=== PATIENT | female | born 1960 | race Caucasian/White ===

== ENCOUNTER → 2018-02-15 17:33 | Outpatient (CLI) | payer OTHER, SELFPAY ==
--- NOTE | 2018-02-15 17:37 | CT_ITS ---
STUDY: LOW DOSE CT LUNG CANCER SCREENING REASON FOR EXAM: Female, 57 years old. 23 pack-year history. RADIATION DOSAGE (If Supplied By Facility): CTDIvol = ( 2.01 ) mGy, DLP = ( 77.51 ) mGycm TECHNIQUE: No contrast was administered. Low dose technique was utilized (average mAS-38 and kVp 120). 1.25 mm axial source images with a slice interval of 1.25-mm were reconstructed in lung windows. 2.5 mm axial source images with a slice interval of 2.5-mm were reconstructed in lung windows. 5.0 mm axial source images with a slice interval of 5.0-mm were reconstructed in soft tissue windows. Nodule measured using lung windows on PACS and/or independent workstation with automated measurement of minimum and maximum diameter. Nodule measurement reported as average diameter rounded to the nearest whole number. Growth is defined as an increase ins size of greater than 1.5 mm. COMPARISON: None. NODULES: Nodule #: 1 Density: Solid Lung location: Left upper lobe: Pleural-based Location in series: Series Number: 2 Image: 65 Size - D1 x D2 mm: 3 x 2 mm: 3 mm average diameter Margin: Smooth Shape: Oval Calcification: No Fat: No Temporal comparison: None Nodule #: 2 Density: Solid Lung location: Right lower lobe: Pleural-based Location in series: Series Number: 2 Image: 150 Size - D1 x D2 mm: 1 x 1 mm: 1 mm average diameter Margin: Smooth Shape: Round Calcification: No Fat: No Temporal comparison: None Total lung nodules (excluding granulomas): 2 Emphysema: There is diffuse emphysematous changes throughout the lungs. There is marked bilateral apical pleural thickening and pleural scarring. Endobronchial lesion: No Aorta: Normal Coronary arteries: Normal Heart: Normal Pulmonary artery: Normal Mediastinal nodes: None Other chest and abdominal findings: There are degenerative changes of the thoracic spine. CT/Low Dose CT Lung Screening IMPRESSION: Lung-RADS category 2 - Continue annual screening with LDCT in 12 months. IMPORTANT NOTES FOR USE: ACR Lung-RADS Version 1.0 Assessment Categories Release Date: December 04, 2013 Category: Coded 0-4 bases on nodule(s) with highest degree of suspicion. Negative screen is defined as categories 1 and 2; a positive screen is defined as categories 3 and 4. Category 3 and 4A nodules that are unchanged on interval CT should be coded as category 2, and individuals returned to screening in 12 months. Category 4X: Category 3 or 4 nodules with additional imaging findings that increase the suspicion of lung cancer, such as spiculation, GGN that doubles in size in 1 year, enlarged lymph notes, etc. Category Modifiers: S (significant finding unrelated to lung cancer) and C (prior history of treated lung cancer) may be added to the 0-4 Lung-RADS Electronically Signed: David Lu DO at 17:03 EDT Tel [phone], Service support ,
== END ==
LOC: CT 17:33
PROVIDERS: Family Provider Family Medicine; PCP Family Medicine; Visit Provider Nurse Practitioner Family
DX: Z87.891 Personal history of nicotine dependence (principal)
CPT/HCPCS: G0297

== ENCOUNTER → 2019-01-05 | Outpatient (CLI) | payer OTHER, SELFPAY ==
[2019-01-05 08:42] VITALS: BMI 24.5
[2019-01-05 12:41] LABS: Hematocrit 40.3 % (37-47); Hemoglobin 13.2 g/dl (12.0-15.0); Mean Corp Hgb Conc 32.8 g/gl (32-36); Mean Corpuscular Hgb 31.3 pg (27.0-32.0); Mean Corpuscular Volume 95.5 fL (81-99); Mean Platelet Vol. 10.8 fl (6.2-12.0); Platelet Count 207 K/mm3 (150-450); RBC Distribution Width CV 13.2 % (11.6-14.6); RBC Distribution Width SD 45.7 fl (35.1-43.9); Red Blood Count 4.22 M/mm3 (4.2-5.4); White Blood Count 7.4 K/mm3 (4.4-11.0)
[2019-01-05 12:42] LABS: Scan Indicated on CBC? Y/N NO
[2019-01-05 12:58] LABS: Vitamin D,25 Hydroxy 42.1 ng/mL (29.95-100.01)
== END | disposition home or self-care (01) ==
LOC: BIMLAB 09:03
PROVIDERS: Family Provider Family Medicine; PCP Family Medicine; Visit Provider Family Medicine
DX: R53.83 Other fatigue (principal); R79.89 Other specified abnormal findings of blood chemistry
CPT/HCPCS: 36415; 82306; 85027

== ENCOUNTER 2019-02-13 08:53 | Day surgery (SDC) | payer OTHER, SELFPAY ==
[2019-01-17 08:47] VITALS: BMI 24.5
--- NOTE | 2019-02-12 12:03 | HP.PCM_ITS ---
History and Physical Date of Admission: 02/13/19 HISTORY OF PRESENT ILLNESS 58 year old woman presents for evaluation for TBSE. She has concerns about a lesion on her right occipital scalp near the posterior lateral neck. The lesion has increased in size over the last several months and has become more raised in configuration and has developed irregular borders. It has also changed color becoming darker. She denies trauma. She denies fever. She denies drainage or bleeding from the lesion. She denies any recent infection. She presents at this time for further evaluation and treatment. PAST MEDICAL HISTORY Skin cancer Osteoarthritis Chronic headaches Back problem Arthritis Anxiety and depression Chronic bronchitis PAST SURGICAL HISTORY appendectomy carpal tunnel repair hysterectomy nasal surgery ALLERGIES No Known Allergies MEDICATIONS cholecalciferol (vitamin D3) vitamin [id number] acid cyclobenzaprine ibuprofen albuterol sulfate HFA-actuation aerosol inhaler estradiol sertraline FAMILY HISTORY Mother - Rheumatoid arthritis, Skin cancer, Hypertension Son - defect, High cholesterol Father - Cancer Uncle - Diabetes Other - Anxiety, Depression SOCIAL HISTORY Smoking Status: Light Smoker (<10/day) alcohol intake: never substance use type: does not use REVIEW OF SYSTEMS General - Denies fever, fatigue, and weight loss. Eyes - Denies cataracts and glaucoma. ENT - Denies nasal congestion and sore throat. Has chronic sinus problems. Endocrine - Denies excessive thirst and urination. Has heat and cold intolerance. Skin - Has enlarging lesion right occipital scalp near the posterior lateral neck. Has history of basal cell carcinoma excision left upper back. Has family history of skin cancer. Musculoskeletal - Denies joint pain, joint stiffness, weakness of muscles and joints. Has back pain, and arthritis. Neuro - Denies headaches. Has lightheadedness. Cardiovascular - Denies chest pain, fatigue, and shortness of breath with exertion. Has lightheadedness. Psych - Denies anxiety. Has depression. Respiratory - Denies chronic cough. Has shortness of breath. Patient is a smoker. Gastrointestinal - Denies nausea, vomiting, diarrhea, and constipation. Hematologic - Denies abnormal bruising and bleeding. Genitourinary - Denies hematuria and urinary frequency. PHYSICAL EXAMINATION General - Alert and Oriented. HEENT - PERRL. EOMI. Throat is clear. On the right occipital scalp near the posterior lateral neck is a lesion that is raised in configuration. It has irregular borders and has changes in pigmentation. Measures 2.5 cm. No ulceration. Lesion is nontender. There is some alopecia over the lesion. No other suspicious lesions noted. Neck - Supple and nontender. No cervical adenopathy. No suspicious lesions noted. Lungs - Clear to auscultation. Heart - Regular rate and rhythm. Abdomen - Soft and nondistended. Extremities - FROM. No axillary adenopathy. Radial pulses are palpable. No suspicious lesions noted. Neuro - CN II-XII grossly intact. Psych - Normal mood and affect. ASSESSMENT 1. 2.5 cm lesion right occipital scalp near the posterior lateral neck. 2. Personal history of skin cancer. 3. Family history of skin cancer. 4. Smoker. PLAN Recommend excision of this enlarging lesion right occipital scalp near the posterior lateral neck and send it to Pathology for analysis to rule out carcinoma. If carcinoma is present or if actinic damage is present, then further excision will be done with skin flap or skin graft reconstruction based on the margin excised and the size of the resultant defect. Surgery will be done under local anesthesia and IV sedation on an outpatient b asis. Patient was informed of the risks and complications of the procedure including alternatives to surgery. These were discussed with the patient personally. Patient voices understanding and wishes to proceed. Some of the risks and complications were included in a form from the [employer]. Encouraged patient to stop smoking as it may have deleterious effects on wound healing. Patient states she does heavy lifting at work. Ideally I would want her with restrictions at work for at least a month after surgery. The restrictions involve no heavy lifting with a 20 lb limit.
--- NOTE | 2019-02-13 | LES_PTH ---
PATIENT: SUNDAY ISABEL LOC: [facility] U#:[id number] AGE/SX: 58/F ROOM: RE02/13/[address]: Dr. Fan Brito MD : 1960 BED: DIS: 02/13/2019 SPEC #: [id number] RECD: 02/13/19 10:49 STATUS: CACHORRO REQ #: [id number] EDMUNDO: 02/13/19 00:[address]: Fan Brito DEPT: SURGICAL PATHOLOGY RECD BY: Liliana Wayne ENTERED: 02/13/19 12:10 SP TYPE: Lesion OTHR DR: Dr. Ronaldo Bunch, DO Tissues: Skin of scalp, NOS Procedures: Frozen Section (charge) Surgery Specimen Level IV HEADER OPERATION: Excision lesion (capillary hemangioma) right occipital scalp PRE-OP DIAGNOSIS: 2.5 cm lesion right occipital scalp near posterior lateral neck TISSUE SUBMITTED: Lesion right occipital scalp near posterior lateral neck, suture at 12 o'clock, frozen section at 1046 FROZEN SECTION DIAGNOSIS Skin lesion, right occipital region, biopsy: Capillary hemangioma. ROSITA:willard 02/13/19 Case has been reviewed in consultation with Dr. Edge who concurs with the above diagnosis. IDC:GISSELLE MICROSCOPIC DIAGNOSIS Skin lesion, right occipital near posterior lateral neck, excisional biopsy: Benign vascular proliferation, consistent with capillary hemangioma. GISSELLE:willard 02/14/19 MICROSCOPIC DESCRIPTION Slides are reviewed. GROSS DESCRIPTION Received fresh for frozen section diagnosis labeled with the patient's name is a specimen designated lesion right occipital scalp near posterior lateral neck, suture at 12 o'clock. The specimen consists of a round piece of brown, red-flannery skin measuring 2.7 x 2.5 cm and up to 0.5 cm in thickness. The specimen is inked as follows: 12 to 3 o'clock - black, 3 to 6 o'clock - blue, 6 to 9 o'clock - green, 9 to 12 o'clock - yellow and deep - red. The specimen serially sectioned and submitted entirely for frozen section diagnosis in four cassettes. / GISSELLE:willard 02/13/19 TC:1 CPT: 56920, 90523, 91261 x3
[2019-02-13 09:14] VITALS: BP 133/84; PULSE 66; RESP 18; TEMP 36.6; O2SAT 98; BMI 23.5
[2019-02-13] MEDS: Mupirocin Ointment 22gm Tube 1 APPLIC (11:24)
--- NOTE | 2019-02-13 11:44 | PCM.OPRPT ---
Report of Operation Date of Procedure: 02/13/19 Pre-Operative Diagnosis: 1. 2.5 cm lesion right occipital scalp near the posterior lateral neck. 2. Personal history of skin cancer. 3. Family history of skin cancer. 4. Smoker. Post-Operative Diagnosis: 1. 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 2. Personal history of skin cancer. 3. Family history of skin cancer. 4. Smoker. Surgery/Procedure Performed:: Excision 2.5 cm capillary hemangioma right occipital scalp near the posterior lateral neck with rhomboid transposition skin flap reconstruction (18 cm2). Description of Surgical Findings:: 58 year old woman presents for evaluation for TBSE. She has concerns about a lesion on her right occipital scalp near the posterior lateral neck. The lesion has increased in size over the last several months and has become more raised in configuration and has developed irregular borders. It has also changed color becoming darker. She denies trauma. She denies fever. She denies drainage or bleeding from the lesion. She denies any recent infection. Patient was informed of the risks and complications of the procedure including alternatives to surgery. These were discussed with the patient personally. Patient voices understanding and wishes to proceed. She understands that sometimes alopecia may occur. She voices understanding and wishes to proceed. Some of the risks and complications were included in a form from the [employer]. Encouraged patient to stop smoking as it may have deleterious effects on wound healing. Frozen section right occipital scalp near posterolateral neck - capillary hemangioma and no carcinoma seen. 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 Drains: None. Estimated Blood Loss (mL): 10 ml. Description of Procedure: Patient was taken to OR in supine position and was placed under general anesthesia. The right occipital scalp and posterolateral neck areas were prepped and draped in the usual fashion. SCD's were placed for DVT prophylaxis. Perioperative antibiotics were given intravenously. Using xylocaine with epinephrine, the lesion right occipital scalp near posterolateral neck was infiltrated. After waiting 5 minutes for the anesthetic to take effect, the lesion was excised in a full thickness fashion down into the subcutaneous tissue with a couple mm margin in all directions thus making it a 3 cm excision. A suture was marked at the 12 oclock position for pathology orientation. The lesion was sent to Pathology as a frozen section for analysis to rule out carcinoma. Frozen section showed a capillary hemangioma and no carcinoma seen. No additional excision was necessary. Hemostasis was obtained with electrocautery. I designed a rhomboid flap adjacent to the defect. Incisions were made down into the subcutaneous tissue as the rhomboid flap was raised on a subcutaneous pedicle down to the level of muscle. Hemostasis was obtained with electrocautery. The rhomboid flap was transposed into the defect with minimal tension and minimal distortion. The wound was closed in a layered fashion with 4-0 Monocryl interrupted sutures for the deep dermis and subcutaneous tissue. The skin was approximated with 4-0 Nylon simple interrupted sutures. The size of the defect and the size of the flap needed to close the defect was 18 cm2. Antibiotic ointment was applied to the suture line followed by a gauze dressing. Patient tolerated the procedure well and was sent to PACU in satisfactory condition. Patient will be sent home on antibiotics and pain medication. Patient will followup in a week for a wound check and for discussion of the pathology report. The sutures will be removed in two weeks. Grafts/Implants Used: None. - Complications None. - Admit VTE Documentation VTE Present on Admission: No VTE Mechan Device Prophylaxis: SCD's VTE Pharm Prophylaxis ordered?: No Code Visit Surgery Charges CPT - 57407 ICD-10 - D18.01, Z85.828, Z80.8, F17.200
[2019-02-13 11:50] VITALS: BP 133/84; BP 150/82; PULSE 81; RESP 16; TEMP 36.3; O2SAT 100
--- NOTE | 2019-02-13 11:51 | DCINST_ITS ---
You will use the following diet at home:: No restrictions Discharge Activity: May not drive while taking narcotic pain medications., May Shower - in two days., - - keep head elevated. no heavy lifting. May shower in (days): 2 May resume sexual activity in: No Restrictions Weight Bearing Status: Weight bearing as tolerated Lifting Restrictions: 20 lbs. Keep extremity elevated above heart level: - - elevate head. Call your doctor if your incision/area has: Continuous Slow Oozing, Sudden Increased Bleeding, Increased Pain/ Swelling, Increased Redness, Foul Smelling Discharge, Swelling at the incision site Call your doctor if you observe: Fever of 101 or Higher, Coldness, Increased Pain, Shortness of breath, Chest pain, Calf discomfort, Uncontrolled pain Suture Line Care: - - apply antibiotic ointment to suture line daily. Cleanse incision/area with: - - may get incision wet in the shower in two days. Allergies/Adverse Reactions: Allergies No Known Allergies Allergy (Unverified 02/06/19 08:04) Medications to take at Discharge cholecalciferol (vitamin D3) 2,000 unit capsule 2,000 unit PO QDAY 02/08/18 cyclobenzaprine 5 mg tablet 5 mg PO TID PRN #20 tab 07/21/18 albuterol sulfate HFA 90 mcg/actuation aerosol inhaler 1 puff INHALATION Q6H PRN #8 g 08/18/18 estradiol 2 mg tablet 2 mg PO QDAY #90 tab 12/27/18 Cyanocobalamin (Vitamin B-12) [Vitamin B-12] 1,000 mcg PO DAILY 02/06/19 Sertraline HCl [Zoloft] 200 mg PO QHS 02/06/19 Clindamycin HCl [Cleocin] 300 mg PO TID #21 cap 02/13/19 Lactobacillus Acidophilus/Fos [Acidophilus Probiotic Tablet] 1 ea PO BID #15 tab 02/13/19 Oxycodone HCl/Acetaminophen [Percocet 5/325] 1 tab PO 4X/DAY PRN PRN 7 Days #30 tab 02/13/19 The following prescriptions were given: Lactobacillus Acidophilus/Fos [Acidophilus Probiotic Tablet] 1 ea PO BID #15 tab Prescription Printed Clindamycin HCl [Cleocin] 300 mg PO TID #21 cap Prescription Printed Oxycodone HCl/Acetaminophen [Percocet 5/325] 1 tab PO 4X/DAY PRN PRN 7 Days #30 tab PRN Reason: Pain Prescription Printed Primary Care Physician: Ronaldo Bunch DO [Primary Care Provider] - Test Results: Test results from this visit will be discussed in further detail at your follow- up appointment, if applicable. Please Follow Up With: Fan Brito MD When: one week. call [phone] for appt. Proposed Discharge Date: 02/13/19
[2019-02-13 12:00] VITALS: BP 128/79; BP 133/84; PULSE 70; RESP 16; O2SAT 94
[2019-02-13 12:15] VITALS: BP 124/78; BP 133/84; PULSE 71; RESP 16; TEMP 36.4; O2SAT 97
[2019-02-13 12:49] VITALS: BP 133/84
== END 2019-02-13 13:30 | disposition home or self-care (01) ==
LOC: SDC 08:54 → AC 08:56
PROVIDERS: Family Provider Family Medicine; PCP Family Medicine; Referring Provider Surgery; Visit Provider Surgery
PROC: (CPT 14021; principal; 2019-02-13 10:15)
DX: D18.01 Hemangioma of skin and subcutaneous tissue (principal); Z85.828 Personal history of other malignant neoplasm of skin; F41.9 Anxiety disorder, unspecified; F32.9 Major depressive disorder, single episode, unspecified; K21.9 Gastro-esophageal reflux disease without esophagitis; Z79.899 Other long term (current) drug therapy; F17.200 Nicotine dependence, unspecified, uncomplicated; M19.90 Unspecified osteoarthritis, unspecified site
CPT/HCPCS: 00300; 14021; 88305; 88331; J7120; J2405

== ENCOUNTER → 2020-06-06 09:08 | Outpatient (CLI) | payer OTHER, SELFPAY ==
[2020-06-06 08:42] VITALS: BMI 24.7
[2020-06-06 12:41] LABS: Erythrocyte Sedimentation Rate 16 mm/hr (0-30)
[2020-06-06 12:43] LABS: Absolute Lymphocyte Count 1.64 X10^3/uL (0.83-4.51); Absolute Neutrophil Count 2.9 X10^3/uL (2.0-7.7); Basophil# 0.05 X10^3/uL; Basophil% 0.9 % (0-1); Eosinophil# 0.25 X10^3/uL; Eosinophils% 4.7 % (0-5); Hematocrit 40.7 % (37-47); Hemoglobin 13.2 g/dL (12.0-15.0); Lymphocyte # 1.64 X10^3/ul (4.0); Lymphocyte % 30.9 % (19-41); Mean Corp Hgb Conc 32.4 g/dL (32-36); Mean Corpuscular Hgb 31.6 pg (27.0-32.0); Mean Corpuscular Volume 97.4 fL (81-99); Mean Platelet Vol. 10.6 fl (6.2-12.0); Monocyte# 0.46 X10^3/uL; Monocyte% 8.7 % (0-10); NRBC Flagged by Analyzer 0 % (0-5); Neutrophil # 2.89 X10^3/uL (2.7-7.7); Neutrophil % 54.6 % (47-70); Platelet Count 194 K/mm3 (150-450); RBC Distribution Width CV 13.2 % (11.6-14.6); RBC Distribution Width SD 47.5 fl (35.1-43.9); Red Blood Count 4.18 M/mm3 (4.2-5.4); White Blood Count 5.3 K/mm3 (4.4-11.0)
[2020-06-06 12:59] LABS: Anion Gap 5 (5-15); BUN 18 mg/dL (7-18); BUN/Creat Ratio 21.4 RATIO (10-20); Calcium,Total 8.6 mg/dL (8.5-10.1); Chloride 107 mmol/L (98-107); Creatinine, Serum 0.84 mg/dL (0.55-1.02); EST Glomerular Filtration Rate 74 mL/min (>60); Est Glom Filt Rate - Afr Amer 89 mL/min (>60); Glucose 82 mg/dL (74-106); Potassium 3.9 mmol/L (3.5-5.1); Sodium Level 140 mmol/L (136-145)
== END ==
PROVIDERS: PCP Family Medicine; Referring Provider Family Medicine; Visit Provider Family Medicine
DX: M19.90 Unspecified osteoarthritis, unspecified site (principal)
CPT/HCPCS: 36415; 80048; 85025; 85652

== ENCOUNTER → 2020-12-03 09:09 | Outpatient (CLI) | payer OTHER, SELFPAY ==
[2020-06-06 08:42] VITALS: BMI 24.7
[2020-12-03 12:55] LABS: Erythrocyte Sedimentation Rate 10 mm/hr (0-30)
[2020-12-03 12:58] LABS: Absolute Lymphocyte Count 1.79 X10^3/uL (0.83-4.51); Absolute Neutrophil Count 3.4 X10^3/uL (2.0-7.7); Basophil# 0.07 X10^3/uL; Basophil% 1.2 % (0-1); Eosinophil# 0.23 X10^3/uL; Eosinophils% 3.8 % (0-5); Hematocrit 42.3 % (37-47); Hemoglobin 13.2 g/dL (12.0-15.0); Lymphocyte # 1.79 X10^3/ul (0.83-4.51); Lymphocyte % 29.4 % (19-41); Mean Corp Hgb Conc 31.2 g/dL (32-36); Mean Corpuscular Hgb 30.4 pg (27.0-32.0); Mean Corpuscular Volume 97.5 fL (81-99); Mean Platelet Vol. 10.7 fl (6.2-12.0); Monocyte# 0.57 X10^3/uL; Monocyte% 9.4 % (0-10); NRBC Flagged by Analyzer 0 % (0-5); Neutrophil % 55.9 % (47-70); Platelet Count 208 K/mm3 (150-450); RBC Distribution Width CV 13.4 % (11.6-14.6); RBC Distribution Width SD 48.7 fl (35.1-43.9); Red Blood Count 4.34 M/mm3 (4.2-5.4); White Blood Count 6.1 K/mm3 (4.4-11.0)
[2020-12-03 13:02] LABS: AST(SGOT) 15 U/L (15-37); Alanine Aminotransfer ALT/SGPT 16 U/L (13-56); Albumin, Serum 3.8 g/dL (3.2-5.0); Alkaline Phosphatase 77 U/L (45-117); Anion Gap 4 (5-15); BUN 16 mg/dL (7-18); BUN/Creat Ratio 17.4 RATIO (10-20); Calcium,Total 8.8 mg/dL (8.5-10.1); Chloride 106 mmol/L (98-107); Creatinine, Serum 0.92 mg/dL (0.55-1.02); EST Glomerular Filtration Rate 66 mL/min (>60); Est Glom Filt Rate - Afr Amer 80 mL/min (>60); Globulin 3.7 g/dL (2.2-4.2); Glucose 89 mg/dL (74-106); Potassium 4.3 mmol/L (3.5-5.1); Protein, Total 7.5 g/dL (6.4-8.2); Sodium Level 140 mmol/L (136-145)
== END ==
PROVIDERS: PCP Family Medicine; Referring Provider Family Medicine; Visit Provider Family Medicine
DX: M19.90 Unspecified osteoarthritis, unspecified site (principal)
CPT/HCPCS: 36415; 80053; 85025; 85652

== ENCOUNTER → 2020-12-11 15:09 | Outpatient (CLI) | payer OTHER, SELFPAY ==
[2020-12-03 09:52] VITALS: BMI 23.5
[2020-12-11 14:06] VITALS: BMI 23.5
--- NOTE | 2020-12-11 15:17 | CT_ITS ---
STUDY: CT CHEST WITHOUT CONTRAST- LOW DOSE SCREENING PROTOCOL REASON FOR EXAM: Female, 60 years old. Current smoker. 20 pack per year history. No current symptoms of lung cancer or pulmonary infection. Shared decision-making with referring PCP documented in patient''s record. RADIATION DOSAGE (If Supplied By Facility): CTDIvol = ( 2.01 ) mGy, DLP = ( 77.01 ) mGycm TECHNIQUE: Low dose screening CT examination performed from the base of the neck to the upper abdomen. Sagittal and coronal reformatted images performed. Sagittal and coronal MIP images provided. The measurements provided are average, rounded measurements per ACR guidelines. COMPARISON: 02/15/2018 FINDINGS: Mild bilateral apical scarring. Mild emphysematous changes. There is no demonstrated pleural abnormality. Normal heart and pericardium. There are calcifications of the coronary arteries. Normal mediastinum. Normal hilar regions. Normal unenhanced pulmonary arteries. Normal aorta arch and descending thoracic aorta. Levoscoliosis lumbar spine with degenerative disc disease. There is no demonstrated abnormality of the visualized upper abdomen. CT/Low Dose CT Lung Screening IMPRESSION: 1. No significant indeterminate incidental findings requiring additional imaging. 2. Incidental findings include mild emphysema with bilateral apical scarring.. ASSESSMENT CATEGORY: LungRADS 1 - Negative. Continue annual screening with LDCT in 12 months, per established ACR guidelines. Electronically Signed: Rah Kapoor MD at 18:10 EDT Tel , Service support ,
--- NOTE | 2020-12-11 15:25 | RAD_ITS ---
STUDY: X-RAY - CERVICAL SPINE REASON FOR EXAM: Female, 60 years old. neck pain TECHNIQUE: 3 view(s) of the cervical spine were obtained. COMPARISON: None FINDINGS: Normal anterior atlantoaxial articulation. Normal odontoid process. There is straightening of the normal cervical lordosis. 2 mm of anterolisthesis of C4 on C5. There is multi-level endplate spondylosis. There is multi-level degenerative disc disease with multilevel disc space narrowing. Normal visualized intervertebral neuroforamina. The soft tissue structures are unremarkable. RAD/Cerv Spine 2 or 3 Views IMPRESSION: Moderate degenerative disc disease with straightening of the normal lordotic curvature in 2 mm of anterolisthesis of C4 on C5. Electronically Signed: Rah Kapoor MD at 16:01 EDT Tel , Service support ,
== END ==
PROVIDERS: PCP Family Medicine; Referring Provider Internal Medicine Critical Care Medicine; Visit Provider Internal Medicine Critical Care Medicine
DX: F17.200 Nicotine dependence, unspecified, uncomplicated (principal); M54.2 Cervicalgia
CPT/HCPCS: 71271; 72040

== ENCOUNTER 2020-12-18 10:26 | Day surgery (SDC) | payer OTHER, SELFPAY ==
--- NOTE | 2011-12-19 07:00 | HP_ITS ---
Intake Vital Signs 12/11/20 14:05 12/11/20 14:06 Height 5 ft 6 in Weight: 136 lb BMI 21.9 23.5 BP 136/82 H Blood Pressure Location Rt brachial Position Sitting Respiration 18 Pulse Oximetry (%) 98 Oxygen Delivery Method room air Intake Visit Reasons: Abnormal Weight Loss Chief Complaint: abn weight loss Skin Carver Required: No Is patient in pain?: No Allergies No Known Allergies Allergy (Verified 12/11/20 14:05) Medications cholecalciferol (vitamin D3) 50 mcg (2,000 unit) capsule 2,000 unit PO QDAY 02/08/18 [History Confirmed 12/11/20] albuterol sulfate 90 mcg/actuation aerosol inhaler 1 puff INHALATION Q6H PRN #8 g 08/18/18 [Rx Confirmed 12/11/20] cyanocobalamin (vitamin B-12) 1,000 mcg PO DAILY 02/06/19 [History Confirmed 12/11/20] cyclobenzaprine 5 mg tablet 5 mg PO TID PRN #20 tab 06/28/19 [Rx Confirmed 12/11/20] ibuprofen 600 mg tablet 600 mg PO TID PRN #90 tab 04/25/20 [Rx Confirmed 12/11/20] indomethacin 50 mg capsule 50 mg PO TID #90 cap 06/06/20 [Rx Confirmed 12/11/20] sertraline 100 mg tablet 200 mg PO QHS #180 tab 07/26/20 [Rx Confirmed 12/11/20] estradiol 2 mg tablet 2 mg PO QDAY #90 tab 08/27/20 [Rx Confirmed 12/11/20] PFSH Medical History Anxiety and depression Arthritis Back problem Chronic bronchitis Chronic headaches Osteoarthritis Seasonal allergies Skin cancer Vision problems Surgical History History of appendectomy History of carpal tunnel repair History of hysterectomy History of nasal surgery History of surgical removal of skin lesion Family History Mother Rheumatoid arthritis Skin cancer Hypertension Son defect High cholesterol Father Cancer Uncle Diabetes Other Anxiety Depression Social History Smoking Status: Current every day smoker alcohol intake: never substance use type: does not use what type of physical activity do you participate in: none additional social history: DOES NOT USE ASPIRIN DOES USE IBUPROFEN HPI HPI HPI: SUNDAY LITTLE, is a 60 F who presents to the office today for HPI HPI Surgical H&P: Yes HPI: SUNDAY LITTLE, is a 60 F who presents to the office today for unexplained weight loss. The patient reports that over the last 3 to 4 months she has lost 25 pounds unintentionally. The patient has not had any nausea or vomiting or abdominal pain. The patient has not noted any blood in her stool. She has never had a colonoscopy. She has not had any type of weight loss intentions. ROS General General: Yes weight change; No appetite, fatigue, colon cancer, breast cancer or weakness HEENT HEENT: Yes difficulty swallowing; No eye injury, eye surgery, swollen glands or hoarseness Endo Endocrine: No thyroid disease, diabetes mellitus, thyroid cancer, Hair loss, heat intolerance or cold intolerance Skin Skin: No rash or changing moles Breast Breast: No left breast lump, right breast lump, nipple discharge, breast pain, abnormal mammogram, abnormal US or breast enlargement Musc Musculoskeletal: Yes back problems and arthritis; No rheumatoid arthritis, gout or joint pain Cardio Cardiovascular: No murmur, pacemaker, heart disease, atrial fibrillation, high blood pressure, heart attack, heart stent, palpitations, shortness of breat with exertion or chest pain Psych Psychiatric: Yes depression; No anxiety or hearing voices Resp Respiratory: Yes shortness of breath, No sleep apnea, No cough, No COPD, No asthma, No emphysema and No wheezing Gastro Gastrointestinal: No abdominal pain, Yes nausea or vomiting, No diarrhea, No constipation, No blood in stool, Yes acid reflux, Yes hemorrhoids, No ulcers, No gallbladder problem and No black,tarry stools Juanito Hematologic: No blood thinners, No blood disorders, No bleeding, No anemia and No blood clots Neuro Neurologic: No system reviewed and no additional complaints, except as documented, No as per HPI, No abnormal gait, No abnormal hearing, No abnormal movements, No abnormal speech, No behavioral changes, No burning sensations, No confusion, No convulsions, No disequilibrium, No dizziness, No localized weakness, No frequent falls, No headache(s), No lack of coordination, No loss of vision, No memory loss, No numbness, No other visual disturbances, No radicular pain, No restless legs, No sensory deficit, No syncope, No tingling, No tremor(s), No weakness and No other Exam Const General: cooperative Orientation: alert and oriented x3 HENMT Head: normal to inspection Neck Neck: normal visual inspection and full ROM Chest Chest palpation & inspection: normal inspection of the chest Breast Palpation: No nipple discharge Resp Effort & Inspection: normal respiratory effort Auscultation: clear to auscultation bilaterally Cardio Rate: regular rate Rhythm: regular rhythm Heart Sounds: no murmurs GI Inspection: non-distended Palpation: soft and nontender Skin General: no rashes or lesions noted Neuro General: patient alert and patient oriented x3 Extrem General: full ROM Psych Appearance: grossly normal Mental Status: mental status grossly normal Assessment and Plan Assessment and Plan (1) Unexplained weight loss: Status: Acute Plan - Dr. Jason Nelson MD: The patient has been experiencing unintentional weight loss over the last 3 to 4 months. She has never had a colonoscopy in the past. She denies any blood in her stool or abdominal pain. She has no history of malignancy other than skin cancer. She is getting a CT of her chest today due to her smoking history. The patient was sent in for EGD and colonoscopy to rule out malignancy. I explained endoscopy in detail to the patient. I explained the risks including but not limited to stroke or heart attack with anesthesia, perforation of the GI tract, bleeding, infection. I explained that any of these could necessitate further emergency surgery. The patient understands and all questions were answered sufficiently. The patient wishes to proceed with procedure. Jason Nelson MD Pager: [facility] [address] [place] [address], [address] [place] [address] Office: Coding Level of Care Code Off vis,new,level 3 Diagnoses Unexplained weight loss R63.4
[2020-12-11 14:06] VITALS: BMI 23.5
[2020-12-18] VITALS (9 sets, daily range): BP systolic 93–118; BP diastolic 48–99; PULSE 55–67; RESP 14–16; TEMP 36.5–37.1; O2SAT 98–100; BMI 20.9
--- NOTE | 2020-12-18 11:05 | HP.PCM_ITS ---
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 Required: No Is patient in pain?: No Allergies No Known Allergies Allergy (Verified 12/11/20 14:05) Medications cholecalciferol (vitamin D3) 50 mcg (2,000 unit) capsule 2,000 unit PO QDAY 02/08/18 [History Confirmed 12/11/20] albuterol sulfate 90 mcg/actuation aerosol inhaler 1 puff INHALATION Q6H PRN #8 g 08/18/18 [Rx Confirmed 12/11/20] cyanocobalamin (vitamin B-12) 1,000 mcg PO DAILY 02/06/19 [History Confirmed 12/11/20] cyclobenzaprine 5 mg tablet 5 mg PO TID PRN #20 tab 06/28/19 [Rx Confirmed 12/11/20] ibuprofen 600 mg tablet 600 mg PO TID PRN #90 tab 04/25/20 [Rx Confirmed 12/11/20] indomethacin 50 mg capsule 50 mg PO TID #90 cap 06/06/20 [Rx Confirmed 12/11/20] sertraline 100 mg tablet 200 mg PO QHS #180 tab 07/26/20 [Rx Confirmed 12/11/20] estradiol 2 mg tablet 2 mg PO QDAY #90 tab 08/27/20 [Rx Confirmed 12/11/20] PFSH Medical History Anxiety and depression Arthritis Back problem Chronic bronchitis Chronic headaches Osteoarthritis Seasonal allergies Skin cancer Vision problems Surgical History History of appendectomy History of carpal tunnel repair History of hysterectomy History of nasal surgery History of surgical removal of skin lesion Family History Mother Rheumatoid arthritis Skin cancer Hypertension Son defect High cholesterol Father Cancer Uncle Diabetes Other Anxiety Depression Social History Smoking Status: Current every day smoker alcohol intake: never substance use type: does not use what type of physical activity do you participate in: none additional social history: DOES NOT USE ASPIRIN DOES USE IBUPROFEN HPI HPI HPI: SUNDAY LITTLE, is a 60 F who presents to the office today for HPI HPI Surgical H&P: Yes HPI: SUNDAY LITTLE, is a 60 F who presents to the office today for unex plained weight loss. The patient reports that over the last 3 to 4 months she has lost 25 pounds unintentionally. The patient has not had any nausea or vomiting or abdominal pain. The patient has not noted any blood in her stool. She has never had a colonoscopy. She has not had any type of weight loss intentions. ROS General General: Yes weight change; No appetite, fatigue, colon cancer, breast cancer or weakness HEENT HEENT: Yes difficulty swallowing; No eye injury, eye surgery, swollen glands or hoarseness Endo Endocrine: No thyroid disease, diabetes mellitus, thyroid cancer, Hair loss, heat intolerance or cold intolerance Skin Skin: No rash or changing moles Breast Breast: No left breast lump, right breast lump, nipple discharge, breast pain, abnormal mammogram, abnormal US or breast enlargement Musc Musculoskeletal: Yes back problems and arthritis; No rheumatoid arthritis, gout or joint pain Cardio Cardiovascular: No murmur, pacemaker, heart disease, atrial fibrillation, high blood pressure, heart attack, heart stent, palpitations, shortness of breat with exertion or chest pain Psych Psychiatric: Yes depression; No anxiety or hearing voices Resp Respiratory: Yes shortness of breath, No sleep apnea, No cough, No COPD, No asthma, No emphysema and No wheezing Gastro Gastrointestinal: No abdominal pain, Yes nausea or vomiting, No diarrhea, No constipation, No blood in stool, Yes acid reflux, Yes hemorrhoids, No ulcers, No gallbladder problem and No black,tarry stools Juanito Hematologic: No blood thinners, No blood disorders, No bleeding, No anemia and No blood clots Neuro Neurologic: No system reviewed and no additional complaints, except as documented, No as per HPI, No abnormal gait, No abnormal hearing, No abnormal movements, No abnormal speech, No behavioral changes, No burning sensations, No confusion, No convulsions, No disequilibrium, No dizziness, No localized weakness, No frequent falls, No headache(s), No lack of coordination, No loss of vision, No memory loss, No numbness, No other visual disturbances, No radicular pain, No restless legs, No sensory deficit, No syncope, No tingling, No tremor(s), No weakness and No other Exam Const General: cooperative Orientation: alert and oriented x3 HENMT Head: normal to inspection Neck Neck: normal visual inspection and full ROM Chest Chest palpation & inspection: normal inspection of the chest Breast Palpation: No nipple discharge Resp Effort & Inspection: normal respiratory effort Auscultation: clear to auscultation bilaterally Cardio Rate: regular rate Rhythm: regular rhythm Heart Sounds: no murmurs GI Inspection: non-distended Palpation: soft and nontender Skin General: no rashes or lesions noted Neuro General: patient alert and patient oriented x3 Extrem General: full ROM Psych Appearance: grossly normal Mental Status: mental status grossly normal Assessment and Plan Assessment and Plan (1) Unexplained weight loss: Status: Acute Plan - Dr. Jason Nelson MD: The patient has been experiencing unintentional weight loss over the last 3 to 4 months. She has never had a colonoscopy in the past. She denies any blood in her stool or abdominal pain. She has no history of malignancy other than skin cancer. She is getting a CT of her chest today due to her smoking history. The patient was sent in for EGD and colonoscopy to rule out malignancy. I explained endoscopy in detail to the patient. I explained the risks including but not limited to stroke or heart attack with anesthesia, perforation of the GI tract, bleeding, infection. I explained that any of these could necessitate further emergency surgery. The patient understands and all questions were answered sufficiently. The patient wishes to proceed with procedure. Jason Nelson MD Pager: [facility] [address] [place] [address], [address] [place] [address] Office: I have re-examined the patient. There are no clinical changes since date of exam.
[2020-12-18] MEDS: Lactated Ringers 1,000 ML 100 ML IV (11:09)
--- NOTE | 2020-12-18 12:18 | OP.CCLET_ITS ---
12/18/2020 Ronaldo Bunch Re : Upper GI endoscopy procedure for Jesi Granger Dear Dr. Bunch This procedure was performed on Friday, December 18, 2020. My impressions and recommendations are as follows: Impressions : - Normal esophagus. - Normal stomach. - Normal examined duodenum. - No specimens collected. Recommendations : - Discharge patient to home. - Resume previous diet. - Continue present medications. - Perform CT scan (computed tomography) of the abdomen with contrast at appointment to be scheduled. My findings are described in the full procedure note, which is enclosed. If I can be of further assistance, please feel free to contact me at Doctor phone number(s): , Work: . Sincerely, Jason Nelson MD 12/18/2020 12:17:57 PM This report has been signed electronically.
--- NOTE | 2020-12-18 12:18 | OP.EGD_ITS ---
Patient Name: Jesi Granger Procedure Date: 12/18/2020 11:42 AM Date of : 1960 Age: 60 Procedure: Upper GI endoscopy Indications: Weight loss Providers: Jason Nelson MD Medicines: Monitored Anesthesia Care Patient Profile: This is a 60 year old female. Refer to note in patient chart for documentation of history and physical. Complications: No immediate complications. Procedure: Pre-Anesthesia Assessment: - Prior to the procedure, a History and Physical was performed, and patient medications and allergies were reviewed. The patient's tolerance of previous anesthesia was also reviewed. The risks and benefits of the procedure and the sedation options and risks were discussed with the patient. All questions were answered, and informed consent was obtained. Prior Anticoagulants: The patient has taken no previous anticoagulant or antiplatelet agents. After reviewing the risks and benefits, the patient was deemed in satisfactory condition to undergo the procedure. After obtaining informed consent, the endoscope was passed under direct vision. Throughout the procedure, the patient's blood pressure, pulse, and oxygen saturations were monitored continuously. The gastroscope was introduced through the mouth, and advanced to the second part of duodenum. The upper GI endoscopy was accomplished without difficulty. The patient tolerated the procedure well. Scope In: 11:54:04 AM Scope Out: 11:56:17 AM Total Procedure Duration Time 0 hours 2 minutes 13 seconds Findings: The esophagus was normal. The stomach was normal. The examined duodenum was normal. Impression: - Normal esophagus. - Normal stomach. - Normal examined duodenum. - No specimens collected. Recommendation: - Discharge patient to home. - Resume previous diet. - Continue present medications. - Perform CT scan (computed tomography) of the abdomen with contrast at appointment to be scheduled. Procedure Code(s): --- Professional --- 41052, Esophagogastroduodenoscopy, flexible, transoral; diagnostic, including collection of specimen(s) by brushing or washing, when performed (separate procedure) Diagnosis Code(s): --- Professional --- R63.4, Abnormal weight loss CPT copyright 2017 [employer]. All rights reserved. The codes documented in this report are preliminary and upon fire tower keeper review may be revised to meet current compliance requirements. Jason Nelson MD 12/18/2020 12:17:57 PM This report has been signed electronically. Number of Addenda: 0 Note Initiated On: 12/18/2020 11:42 AM
--- NOTE | 2020-12-18 12:19 | OP.CCLET_ITS ---
12/18/2020 Ronaldo Bunch Re : Colonoscopy procedure for Jesi Granger Dear Dr. Bunch This procedure was performed on Friday, December 18, 2020. My impressions and recommendations are as follows: Impressions : - The entire examined colon is normal on direct and retroflexion views. - No specimens collected. Recommendations : - Discharge patient to home. - Resume previous diet. - Continue present medications. - Repeat colonoscopy in 10 years for screening purposes. My findings are described in the full procedure note, which is enclosed. If I can be of further assistance, please feel free to contact me at Doctor phone number(s): , Work: . Sincerely, Jason Nelson MD 12/18/2020 12:19:02 PM This report has been signed electronically.
--- NOTE | 2020-12-18 12:19 | OP.COLON_ITS ---
Patient Name: Jesi Granger Procedure Date: 12/18/2020 11:56 AM Date of : 1960 Age: 60 Procedure: Colonoscopy Indications: Weight loss Providers: Jason Nelson MD Medicines: Monitored Anesthesia Care Patient Profile: This is a 60 year old female. Refer to note in patient chart for documentation of history and physical. Last Colonoscopy: none. The patient's first colonoscopy is today. Complications: No immediate complications. Procedure: Pre-Anesthesia Assessment: - Prior to the procedure, a History and Physical was performed, and patient medications and allergies were reviewed. The patient's tolerance of previous anesthesia was also reviewed. The risks and benefits of the procedure and the sedation options and risks were discussed with the patient. All questions were answered, and informed consent was obtained. Prior Anticoagulants: The patient has taken no previous anticoagulant or antiplatelet agents. After reviewing the risks and benefits, the patient was deemed in satisfactory condition to undergo the procedure. After I obtained informed consent, the scope was passed under direct vision. Throughout the procedure, the patient's blood pressure, pulse, and oxygen saturations were monitored continuously. The colonoscope was introduced through the anus and advanced to the cecum, identified by appendiceal orifice and ileocecal valve. The colonoscopy was performed without difficulty. The patient tolerated the procedure well. The quality of the bowel preparation was good. Scope In: 11:58:54 AM Scope Withdrawal Time 0 hours 6 minutes 42 seconds Scope Out: 12:14:22 PM Total Procedure Duration Time 0 hours 15 minutes 28 seconds Findings: The entire examined colon appeared normal on direct and retroflexion views. Impression: - The entire examined colon is normal on direct and retroflexion views. - No specimens collected. Recommendation: - Discharge patient to home. - Resume previous diet. - Continue present medications. - Repeat colonoscopy in 10 years for screening purposes. Procedure Code(s): --- Professional --- 82435, Colonoscopy, flexible; diagnostic, including collection of specimen(s) by brushing or washing, when performed (separate procedure) Diagnosis Code(s): --- Professional --- R63.4, Abnormal weight loss CPT copyright 2017 [employer]. All rights reserved. The codes documented in this report are preliminary and upon farmworker dairy review may be revised to meet current compliance requirements. Jason Nelson MD 12/18/2020 12:19:02 PM This report has been signed electronically. Number of Addenda: 0 Note Initiated On: 12/18/2020 11:56 AM
== END 2020-12-18 13:10 ==
LOC: EN 10:29 → AC 10:56
PROVIDERS: PCP Family Medicine; Referring Provider Family Medicine; Visit Provider Surgery
PROC: 0DJD8ZZ Inspection of Lower Intestinal Tract, Via Natural or Artificial Opening Endoscopic (ICD-10-PCS; CPT 45378; principal; 2020-12-18 11:55)
DX: R63.4 Abnormal weight loss (principal); Z68.20 Body mass index [BMI] 20.0-20.9, adult; F41.9 Anxiety disorder, unspecified; F32.9 Major depressive disorder, single episode, unspecified; M19.90 Unspecified osteoarthritis, unspecified site; Z85.828 Personal history of other malignant neoplasm of skin; Z79.899 Other long term (current) drug therapy; F17.210 Nicotine dependence, cigarettes, uncomplicated
CPT/HCPCS: 43235; 45378; 87426; C9803; J7120; J2405

== ENCOUNTER → 2021-03-20 09:05 | Outpatient (CLI) | payer OTHER, SELFPAY ==
[2021-02-12 09:03] VITALS: BMI 20.9
[2021-03-20 12:14] LABS: Erythrocyte Sedimentation Rate 17 mm/hr (0-30)
[2021-03-20 12:22] LABS: CRP < 2.90 mg/L (0.0-3.0); Rheumatoid Factor < 10.0 IU/mL (<15)
[2021-03-21 17:29] LABS: ANTINUCLEAR ANTIBODIES DIRECT Negative (Negative)
== END ==
PROVIDERS: PCP Family Medicine; Referring Provider Family Medicine; Visit Provider Family Medicine
DX: M25.40 Effusion, unspecified joint (principal)
CPT/HCPCS: 36415; 85652; 86038; 86140; 86431

== ENCOUNTER → 2022-03-17 | Outpatient (CLI) | payer OTHER, SELFPAY ==
--- NOTE | 2022-03-17 14:38 | CT_ITS ---
STUDY: LOW DOSE CT LUNG CANCER SCREENING REASON FOR EXAM: Female, 62 years old. Lung cancer screening -- and gt;20 pk yr hx;current smoker;asymptomatic RADIATION DOSAGE (If Supplied By Facility): CTDIvol = ( 2.01 ) mGy, DLP = ( 71.98 ) mGycm TECHNIQUE: No contrast was administered. Low dose technique was utilized (average mAS-38 and kVp 120). 1.25 mm axial source images with a slice interval of 1.25-mm were reconstructed in lung windows. 2.5 mm axial source images with a slice interval of 2.5-mm were reconstructed in lung windows. 5.0 mm axial source images with a slice interval of 5.0-mm were reconstructed in soft tissue windows. COMPARISON: Comparison is made with prior study dated 12/11/2020. NODULES: No suspicious nodules are seen. Emphysema: Stable fibrotic scarring in the lung apices. Hyperinflation. Emphysematous changes with centrilobular changes worse in the upper lobes. Endobronchial lesion: None Aorta: Atherosclerotic calcific plaques of the aortic arch. CORONARY ARTERIES: Coronary artery calcification is not seen. Heart: Unremarkable Pulmonary artery: Unremarkable Mediastinal nodes: Unremarkable Other chest and abdominal findings: CT/Low Dose CT Lung Screening IMPRESSION: Lung-RADS category 2 - Continue annual screening with LDCT in 12 months. IMPORTANT NOTES FOR USE: ACR Lung-RADS Version 1.1 Assessment Categories Release Date: 2018 Category: Coded 0-4 bases on nodule(s) with highest degree of suspicion. Negative screen is defined as categories 1 and 2; a positive screen is defined as categories 3 and 4. Category 3 and 4A nodules that are unchanged on interval CT should be coded as category 2, and individuals returned to screening in 12 months. Category 4X: Category 3 or 4 nodules with additional imaging findings that increase the suspicion of lung cancer, such as spiculation, GGN that doubles in size in 1 year, enlarged lymph notes, etc. Category Modifiers: S (significant finding unrelated to lung cancer) Electronically Signed: Tomer Reyes MD at 15:05 EDT ,
== END | disposition home or self-care (01) ==
LOC: CT 14:37
PROVIDERS: PCP Family Medicine; Referring Provider Nurse Practitioner Family; Visit Provider Nurse Practitioner Family
DX: Z12.2 Encounter for screening for malignant neoplasm of respiratory organs (principal); Z87.891 Personal history of nicotine dependence
CPT/HCPCS: 71271

== ENCOUNTER → 2022-07-29 | Outpatient (CLI) | payer OTHER, SELFPAY ==
[2022-07-29 11:07] LABS: Absolute Lymphocyte Count 1.51 X10^3/uL (0.83-4.51); Absolute Neutrophil Count 3.7 X10^3/uL (2.0-7.7); Basophil# 0.08 X10^3/uL; Basophil% 1.3 % (0-1); Eosinophils% 3.3 % (0-5); Hematocrit 39.6 % (37-47); Hemoglobin 12.5 g/dL (12.0-15.0); Lymphocyte # 1.51 X10^3/ul (0.83-4.51); Lymphocyte % 24.8 % (19-41); Mean Corp Hgb Conc 31.6 g/dL (32-36); Mean Corpuscular Hgb 30.8 pg (27.0-32.0); Mean Corpuscular Volume 97.5 fL (81-99); Mean Platelet Vol. 10.7 fl (6.2-12.0); Monocyte# 0.52 X10^3/uL; Monocyte% 8.6 % (0-10); NRBC Flagged by Analyzer 0 % (0-5); Neutrophil # 3.74 X10^3/uL (2.7-7.7); Neutrophil % 61.5 % (47-70); Platelet Count 208 K/mm3 (150-450); RBC Distribution Width CV 13.6 % (11.6-14.6); RBC Distribution Width SD 48.9 fl (35.1-43.9); Red Blood Count 4.06 M/mm3 (4.2-5.4); White Blood Count 6.1 K/mm3 (4.4-11.0)
[2022-07-29 11:17] LABS: Vitamin D,25 Hydroxy 26.2 ng/mL
[2022-07-29 11:47] LABS: Erythrocyte Sedimentation Rate 18 mm/hr (0-30)
== END | disposition home or self-care (01) ==
LOC: BIMLAB 08:52
PROVIDERS: PCP Family Medicine; Referring Provider Family Medicine; Visit Provider Family Medicine
DX: M79.7 Fibromyalgia (principal); M19.90 Unspecified osteoarthritis, unspecified site
CPT/HCPCS: 36415; 82306; 85025; 85652

== ENCOUNTER → 2023-08-31 | Outpatient (CLI) | payer OTHER, SELFPAY ==
[2023-08-31 12:10] LABS: Hematocrit 38.9 % (37-47); Hemoglobin 12.4 g/dL (12.0-15.0); Mean Corp Hgb Conc 31.9 g/dL (32-36); Mean Corpuscular Hgb 30.8 pg (27.0-32.0); Mean Corpuscular Volume 96.8 fL (81-99); Mean Platelet Vol. 10.6 fl (6.2-12.0); Platelet Count 217 K/mm3 (150-450); RBC Distribution Width CV 13.4 % (11.6-14.6); RBC Distribution Width SD 47.8 fl (35.1-43.9); Red Blood Count 4.02 M/mm3 (4.2-5.4); White Blood Count 9.4 K/mm3 (4.4-11.0)
[2023-08-31 12:23] LABS: ALB/GLOB Ratio 0.9 RATIO (0.9-2.4); AST(SGOT) 18 U/L (15-37); Alanine Aminotransfer ALT/SGPT 18 U/L (13-56); Albumin, Serum 3.6 g/dL (3.2-5.0); Alkaline Phosphatase 79 U/L (45-117); Anion Gap 3 (5-15); BUN 18 mg/dL (7-18); BUN/Creat Ratio 19.7 RATIO (10-20); Chloride 109 mmol/L (98-107); Creatinine, Serum 0.92 mg/dL (0.55-1.02); EST Glomerular Filtration Rate 66 mL/min (>60); Est Glom Filt Rate - Afr Amer 80 mL/min (>60); Globulin 3.8 g/dL (2.2-4.2); Glucose 83 mg/dL (74-106); Potassium 3.9 mmol/L (3.5-5.1); Protein, Total 7.4 g/dL (6.4-8.2); Sodium Level 140 mmol/L (136-145)
== END | disposition home or self-care (01) ==
LOC: BIMLAB 10:48
PROVIDERS: PCP Family Medicine; Visit Provider Family Medicine
DX: K21.9 Gastro-esophageal reflux disease without esophagitis (principal); M19.90 Unspecified osteoarthritis, unspecified site; M79.7 Fibromyalgia
CPT/HCPCS: 36415; 80053; 85027

== ENCOUNTER → 2023-10-05 | Outpatient (CLI) | payer OTHER, SELFPAY ==
--- NOTE | 2023-10-05 14:55 | CT_ITS ---
STUDY: LOW DOSE CT LUNG CANCER SCREENING REASON FOR EXAM: Female, 63 years old. Lung cancer screening 20 pk yr hx; asymptmatic; current smoker RADIATION DOSAGE (If Supplied By Facility): CTDIvol = ( 1.59 ) mGy, DLP = ( 61.16 ) mGycm TECHNIQUE: No contrast was administered. Low dose technique was utilized (average mAS-38 and kVp 120). 1.25 mm axial source images with a slice interval of 1.25-mm were reconstructed in lung windows. 2.5 mm axial source images with a slice interval of 2.5-mm were reconstructed in lung windows. 5.0 mm axial source images with a slice interval of 5.0-mm were reconstructed in soft tissue windows. COMPARISON: Comparison is made with prior study March 17, 2022. NODULES: No suspicious pulmonary nodules are seen. Emphysema: Stable fibrotic scarring in the lung apices. Stable emphysematous changes. Endobronchial lesion: None Aorta: Atherosclerotic plaque formation of the aortic arch. CORONARY ARTERIES: Coronary artery calcification is not seen. Heart: Unremarkable Pulmonary artery: Unremarkable Mediastinal nodes: Unremarkable Other chest and abdominal findings: CT/Low Dose CT Lung Screening IMPRESSION: Lung-RADS category 2 - Continue annual screening with LDCT in 12 months. IMPORTANT NOTES FOR USE: ACR Lung-RADS Version 1.1 Assessment Categories Release Date: 2018 Category: Coded 0-4 bases on nodule(s) with highest degree of suspicion. Negative screen is defined as categories 1 and 2; a positive screen is defined as categories 3 and 4. Category 3 and 4A nodules that are unchanged on interval CT should be coded as category 2, and individuals returned to screening in 12 months. Category 4X: Category 3 or 4 nodules with additional imaging findings that increase the suspicion of lung cancer, such as spiculation, GGN that doubles in size in 1 year, enlarged lymph notes, etc. Category Modifiers: S (significant finding unrelated to lung cancer) Electronically Signed: Tomer Reyes MD at 15:32 EST ,
--- OUTSIDE RECORDS SUMMARY | 2023-10-05 22:48 | XMS RPT_ITS | CCD ---
Author Name Unknown Address [address] [place] [address] Organization [facility] Care Team Providers Care Cardiac Cath Lab Manager Name Role Phone OWEN HOLDEN DO Primary Care Physician CLIFFORD CANALES, DR BAO Singh Attending Unavailable OWEN HOLDEN DO Primary Care Unavailable OWEN HOLDEN DO Attending Unavailable OWEN HOLDEN DO Primary Care Unavailable OWEN HOLDEN DO Attending Unavailable OWEN HOLDEN DO Primary Care Unavailable Medications Current Medications Medication Drug Class(es) Dates Sig (Normalized) Sig (Original) cloNIDine hydrochloride 0.2 mg oral tablet (2 sources) Central alpha-2 Adrenergic Agonist Start: 04-09-2017 cloNIDine 0.2 mg oral tablet Dose : 0.2 mg = 1 tab(s), Oral, BID Start Date: 04/09/17 Status: Ordered dexamethasone 4 mg oral tablet (1 source) Corticosteroid Start: 12-19-2022 End: 12-24-2022 dexAMETHasone 4 mg oral tablet Dose : 4 mg = 1 tab(s), Oral, BID, X 5 day(s), # 10 tab(s), 0 Refill(s), 12/24/22 12:02:00 EDT Start Date: 12/19/22 Stop Date: 12/24/22 Status: Ordered Estrogens, Conjugated (PRISON) (2 sources) Estrogen Start: 04-09-2017 conjugated estrogens Start Date: 04/09/17 Status: Ordered ibuprofen 400 mg oral tablet (2 sources) Nonsteroidal Anti-inflammatory Drug Start: 04-09-2017 ibuprofen Dose : 400 mg =, Oral Start Date: 04/09/17 Status: Ordered nabumetone 500 mg oral tablet (1 source) Nonsteroidal Anti-inflammatory Drug Start: 12-19-2022 End: 12-26-2022 nabumetone 500 mg oral tablet Dose : 1,000 mg = 2 tab(s), Oral, BID, # 28 tab(s), 0 Refill(s) Start Date: 12/19/22 Stop Date: 12/26/22 Status: Ordered sertraline 100 mg oral tablet (2 sources) Serotonin Reuptake Inhibitor Start: 04-09-2017 Zoloft 100 mg oral tablet Dose : 100 mg = 1 tab(s), Oral, qDay Start Date: 04/09/17 Status: Ordered vitamin B12 (2 sources) Vitamin B12 Start: 04-29-2019 Vitamin B12 0 Refill(s) Start Date: 04/29/19 Status: Ordered Vitamin D3 (2 sources) Start: 04-29-2019 Vitamin D3 0 Refill(s) Start Date: 04/29/19 Status: Ordered Problems Problem Classification Problem Date Documented Da te Episodic/Chronic Mood disorders (2 sources) Depressive disorder 04-09-2017 Chronic Osteoarthritis (2 sources) Arthritis 04-09-2017 Chronic Results Test Name Value Interpretation Reference Range Facil ity Vital Signs Date Time Vital Sign Value Performing Clinician Faci lity 12-19-2022 09:55-0400 Body temperature 98.24 [degF] DR BAO HORTON MD [facility] 12-19-2022 09:55-0400 Diastolic Blood Pressure Non-Invasive [address] BAO HORTON MD [facility] 12-19-2022 09:55-0400 Heart rate 66 /min DR BAO HORTON MD [facility] 12-19-2022 09:55-0400 Respiratory rate 18 /min DR BAO HORTON MD [facility] 12-19-2022 09:55-0400 Systolic Blood Pressure Non-Invasive [address] BAO HORTON MD [facility] Encounters Encounter Date Encounter Type Care Provider Facility Start: 12-19-2022 End: 12-19-2022 Emergency department patient visit DR BAO HORTON MD Facility:B Start: 12-19-2022 End: 12-19-2022 Emergency department patient visit DR BAO HORTON MD [facility] Start: 09-23-2022 End: 09-24-2022 ambulatory OWEN HOLDEN DO Facility:B Start: 09-23-2022 End: 09-23-2022 Patient encounter procedure OWEN HOLDEN DO [facility] Start: 09-18-2022 ambulatory OWEN HOLDEN DO Faci lity:B Payers Date Payer Category Payer Unknown [id number] 1960 Unknown [id number] 1960 Unknown [id number] 1960 Unknown [id number] Social History Date Type Detail Facility Start: 04-29-2019 Tobacco smoking status Heavy t obacco smoker (finding) [facility] Sex Assigned At Sex [facility] Functional Status Date Assessment Result Facility 12-19-2022 Functional Status Standard Safet y ID band on, Call device within reach, Bed in low position, Wheels locked, Upper/Half-Length side-rails up, Phone within reach, personal items within reach, Assistive devices within reach, Bedside Cart Locked, Safety level maintained, Non-Slip footwear [facility] Discharge instructions 12-19-2022 Note Date & Type Note Facility 12-19-2022 Hospital Discharg e instructions Patient Education 12/19/2022 12:02:43 Dental Abscess Dental Abscess An abscess is a pocket of pus at the tip of a tooth root in your jaw bone. It is caused by an infection at the root of the tooth. It can cause pain and swelling of the gum, cheek, or jaw. Pain may spread from the tooth to your ear or the area of your jaw on the same side. If the abscess isn t treated, it appears as a bubble or swelling on the gum near the tooth. The pressure that builds in this swelling is the source of the pain. More serious infections cause your face to swell. An abscess can be caused by a crack in the tooth, a cavity, a gum infection, or a combination of these. Once the pulp of the tooth is exposed, bacteria can spread down the roots to the tip. If the bacteria are not stopped, they can damage the bone and soft tissue, and an abscess can form. Home care Follow these guidelines when caring for yourself at home: Don't have hot and cold foods and drinks. Your tooth may be sensitive to changes in temperature. Don t chew on the side of the infected tooth. If your tooth is chipped or cracked, or if there is a large open cavity, put oil of cloves directly on the tooth to relieve pain. You can buy oil of cloves at drugstores. Some pharmacies carry an mvjp-bdo-spwprqm toothache kit. This contains a paste that you can put on the exposed tooth to make it less sensitive. Put a cold pack on your jaw over the sore area to help reduce pain. You may use ebau-kjo-qfjrdqu medicine to ease pain, unless another medicine was prescribed. If you have chronic liver or kidney disease, talk with your healthcare provider before using acetaminophen or ibuprofen. Also talk with your provider if you ve had a stomach ulcer or GI bleeding. An antibiotic will be prescribed. Take it until finished, even if you are feeling better after a few days. Follow-up care Follow up with your dentist or an oral surgeon, or as advised. Once an infection occurs in a tooth, it will continue to be a problem until the infection is drained. This is done through surgery or a root canal. Or you may need to have your tooth pulled. Call 911 Call 911 if any of these occur: Unusual drowsiness Headache or stiff neck Weakness or fainting Difficulty swallowing, breathing, or opening your mouth Swollen eyelids When to seek medical advice Call your healthcare provider right away if any of these occur: Your face becomes more swollen or red Pain gets worse or spreads to your neck Fever of 100.4 F (38.0 C) or higher, or as directed by your healthcare provider Pus drains from the tooth [id number] [employer]. [address] [place] [address]. All rights reserved. This information is not intended as a substitute for professional medical care. Always follow your healthcare professional's instructions. Follow Up Care 12/19/2022 09:50:40 With:dentist Address: When:2-4 days [facility] Clinical Note 12-19-2022 Note Date & Type Note Facility 12-19-2022 Note Discharge Instructions Thank you for allowing [facility] to assist you with your healthcare needs. The following is important discharge information regarding your hospital visit. Diagnosis from Today's Visit Mouth pain, swelling What to Do Next Instructions from Your Care Team Discharge Return to Work, School, or Sports (Return to Work, School, or Sports) - Ordered -- 12/21/22, May return to: work, 12/19/22 12:02:00 EDT Post Acute Orders No qualifying data available. You Need to Schedule the Following Appointments Follow Up with dentist When Within 2-4 days Where: Allergies [facility] Medications Please ask your primary doctor or pharmacist before taking any other medication not listed, including over the counter drugs, herbal medications, vitamins and or supplements as they may interact with your home medications. What How Much When Instructions Last Dose New dexAMETHasone (dexAMETHasone 4 mg oral tablet) 1 tab(s) by mouth Two (2) times a day Duration: 5 Days Printed Prescription New nabumetone (nabumetone 500 mg oral tablet) 2 tab(s) by mouth Two (2) times a day Duration: 7 Days Printed Prescription Unchanged cholecalciferol (Vitamin D3) Unchanged cloNIDine (cloNIDine 0.2 mg oral tablet) 1 tab(s) by mouth Two (2) times a day Unchanged conjugated estrogens Unchanged cyanocobalamin (Vitamin B12) Unchanged ibuprofen 400 Milligram by mouth Unchanged sertraline (Zoloft 100 mg oral tablet) 1 tab(s) by mouth Once a day Please take this list to your next doctor s visit. Bring all medications you take, including over the counter medications, herbals and other supplements with you to your doctor s visit. Patients and families are reminded to discard old lists and to update any records with all medication providers or retail pharmacies. Medication Leaflets nabumetone (na BUE me tone) Relafen What is the most important information I should know about nabumetone? Nabumetone can increase your risk of fatal heart attack or stroke. Do not use this medicine just before or after heart bypass surgery (coronary artery bypass graft, or CABG). Nabumetone may also cause stomach or intestinal bleeding, which can be fatal. What is nabumetone? Nabumetone is a nonsteroidal anti-inflammatory drug (NSAID). Nabumetone works by reducing hormones that cause inflammation and pain in the body. Nabumetone is used to relieve the symptoms of rheumatoid arthritis or osteoarthritis. Nabumetone may also be used for purposes not listed in this medication guide. What should I discuss with my healthcare provider before taking nabumetone? Nabumetone can increase your risk of fatal heart attack or stroke, even if you don't have any risk factors. Do not use this medicine just before or after heart bypass surgery (coronary artery bypass graft, or CABG). Nabumetone may also cause stomach or intestinal bleeding, which can be fatal. These conditions can occur without warning while you are using nabumetone, especially in older adults. You should not use nabumetone if you are allergic to it, or if you have ever had an asthma attack or severe allergic reaction after taking aspirin or an NSAID. Tell your doctor if you have ever had: heart disease, high blood pressure, high cholesterol, diabetes, or if you smoke; a heart attack, stroke, or blood clot; stomach ulcers or bleeding; asthma; liver or kidney disease; or fluid retention. If you are , you should not take nabumetone unless your doctor tells you to. Taking an NSAID during the last 20 weeks of can cause serious heart or kidney problems in the unborn baby and possible complications with your . You should not breastfeed while using this medicine. Nabumetone is not approved for use by anyone younger than 18 years old. How should I take nabumetone? Follow all directions on your prescription label and read all medication guides. Your doctor may occasionally change your dose. Use the lowest dose that is effective in treating your condition. You may take nabumetone with or without food. If you use this medicine long-term, you may need frequent medical tests. Store at room temperature away from moisture and heat. Keep the bottle tightly closed when not in use. What happens if I miss a dose? Take the medicine as soon as you can, but skip the missed dose if it is almost time for your next dose. Do not take two doses at one time. What happens if I overdose? Seek emergency medical attention or call the Poison Help line at . What should I avoid while taking nabumetone? Avoid drinking alcohol. It may increase your risk of stomach bleeding. Ask a doctor or pharmacist before using other medicines for pain, fever, swelling, or cold/flu symptoms. They may contain ingredients similar to nabumetone (such as aspirin, ibuprofen, ketoprofen, or naproxen). Nabumetone could make you sunburn more easily. Avoid sunlight or tanning beds. Wear protective clothing and use sunscreen (SPF 30 or higher) when you are outdoors. What are the possible side effects of nabumetone? Get emergency medical help if you have signs of an allergic reaction (hives, sneezing, runny or stuffy nose, wheezing, difficult breathing, swelling in your face or throat) or a severe skin reaction (fever, sore throat, burning eyes, skin pain, red or purple skin rash with blistering and peeling). Get emergency medical help if you have signs of a heart attack or stroke: chest pain spreading to your jaw or shoulder, sudden numbness or weakness on one side of the body, slurred speech, feeling short of breath. Stop using nabumetone and call your doctor at once if you have: shortness of breath (even with mild exertion); swelling or rapid weight gain; the first sign of any skin rash, no matter how mild; signs of stomach bleeding--bloody or tarry stools, coughing up blood or vomit that looks like coffee grounds; liver problems--nausea, upper stomach pain, itching, tired feeling, flu-like symptoms, loss of appetite, dark urine, oni-colored stools, jaundice (yellowing of the skin or eyes); kidney problems--little or no urinating, painful or difficult urination, swelling in your feet or ankles, feeling tired or short of breath; or low red blood cells (anemia)--pale skin, unusual tiredness, feeling light-headed or short of breath, cold hands and feet. Common side effects may include: stomach pain, indigestion, nausea; diarrhea, constipation, gas; swelling in your hands and feet; headache, dizziness; itching, skin rash; or ringing in your ears. This is not a complete list of side effects and others may occur. Call your doctor for medical advice about side effects. You may report side effects to FDA at 8-563-KID-9502. What other drugs will affect nabumetone? Ask your doctor before using nabumetone if you take an antidepressant. Taking certain antidepressants with an NSAID may cause you to bruise or bleed easily. Tell your doctor about all your other medicines, especially: lithium; methotrexate; a blood thinner (warfarin, Coumadin, Jantoven); heart or blood pressure medication, including a diuretic or 'water pill'; or steroid medicine (such as prednisone). This list is not complete. Other drugs may affect nabumetone, including prescription and wapw-kdv-oojpnnu medicines, vitamins, and herbal products. Not all possible drug interactions are listed here. Where can I get more information? Your pharmacist can provide more information about nabumetone. Remember, keep this and all other medicines out of the reach of children, never share your medicines with others, and use this medication only for the indication prescribed. Every effort has been made to ensure that the information provided by [employer]. ('[employer]') is accurate, up-to-date, and complete, but no guarantee is made to that effect. Drug information contained herein may be time sensitive. [employer] information has been compiled for use by healthcare practitioners and consumers in the [place] and therefore [employer] does not warrant that uses outside of the [place] are appropriate, unless specifically indicated otherwise. [employer] drug information does not endorse drugs, diagnose patients or recommend therapy. [employer] drug information is an informational resource designed to assist licensed healthcare practitioners in caring for their patients and/or to serve consumers viewing this service as a supplement to, and not a substitute for, the expertise, skill, knowledge and judgment of healthcare practitioners. The absence of a warning for a given drug or drug combination in no way should be construed to indicate that the drug or drug combination is safe, effective or appropriate for any given patient. [employer] does not assume any responsibility for any aspect of healthcare administered with the aid of information [employer] provides. The information contained herein is not intended to cover all possible uses, directions, precautions, warnings, drug interactions, allergic reactions, or adverse effects. If you have questions about the drugs you are taking, check with your doctor, nurse or pharmacist. Copyright 7666-0081 [employer]. Version: 13.02. Revision Date: 08/28/2020. dexamethasone (oral) (dex a METH a sone) Decadron, DexPak 6 DayTaperpak, Hemady What is the most important information I should know about dexamethasone? You should not use this medicine if you have a fungal infection anywhere in your body. Tell your doctor about all your medical conditions, and all the medicines you are using. There are many other diseases that can be affected by steroid use, and many other medicines that can interact with steroids. What is dexamethasone? There are many brands and forms of dexamethasone available. Not all brands are listed on this leaflet. Dexamethasone is a steroid that prevents the release of substances in the body that cause inflammation. Dexamethasone is used to treat many different conditions such as allergic disorders, skin conditions, ulcerative colitis, arthritis, lupus, psoriasis, or breathing disorders. Dexamethasone may also be used for purposes not listed in this medication guide. What should I discuss with my healthcare provider before taking dexamethasone? You should not use dexamethasone if you are allergic to it, or if you have: a fungal infection anywhere in your body. Tell your doctor if you have ever had: liver disease (such as cirrhosis); kidney disease; a thyroid disorder; malaria; tuberculosis; osteoporosis; a muscle disorder such as myasthenia gravis; diabetes (steroid medicine may increase glucose levels in your blood or urine); glaucoma or cataracts; herpes infection of the eyes; stomach ulcers, ulcerative colitis, diverticulitis, inflammatory bowel disease; depression or mental illness; congestive heart failure; or high blood pressure. Steroid medication affects your immune system. You may get infections more easily. Steroids can also worsen or reactivate an infection you've already had. Tell your doctor about any illness or infection you have had within the past several weeks. It is not known whether this medicine will harm an unborn baby. Tell your doctor if you are . You should not breastfeed while using dexamethasone. How should I take dexamethasone? Follow all directions on your prescription label and read all medication guides or instruction sheets. Your doctor may occasionally change your dose. Use the medicine exactly as directed. Your dose needs may change due to surgery, illness, stress, or a medical emergency. Tell your doctor about any such situation that affects you. This medicine can affect the results of certain medical tests. Tell any doctor who treats you that you are using dexamethasone. Do not stop using dexamethasone suddenly, or you could have unpleasant withdrawal symptoms. Ask your doctor how to safely stop using this medicine. In case of emergency, wear or carry medical identification to let others know you use dexamethasone. Store at room temperature away from moisture and heat. What happens if I miss a dose? Call your doctor for instructions if you miss a dose of dexamethasone. What happens if I overdose? Seek emergency medical attention or call the Poison Help line at . An overdose of dexamethasone is not expected to produce life threatening symptoms. long-term use of high doses can lead to thinning skin, easy bruising, changes in body fat (especially in your face, neck, back, and waist), increased acne or facial hair, menstrual problems, impotence, or loss of interest in sex. What should I avoid while taking dexamethasone? Avoid being near people who are sick or have infections. Call your doctor for preventive treatment if you are exposed to chickenpox or measles. These conditions can be serious or even fatal in people who are using steroid medicine. Avoid drinking alcohol while you are taking dexamethasone. Do not receive a 'live' vaccine while using dexamethasone. The vaccine may not work as well during this time, and may not fully protect you from disease. Live vaccines include measles, mumps, rubella (MMR), polio, rotavirus, typhoid, yellow fever, varicella (chickenpox), and zoster (shingles). What are the possible side effects of dexamethasone? Get emergency medical help if you have signs of an allergic reaction: hives; difficulty breathing; swelling of your face, lips, tongue, or throat. Call your doctor at once if you have: muscle tightness, weakness, or limp feeling; blurred vision, tunnel vision, eye pain, or seeing halos around lights; shortness of breath (even with mild exertion), swelling, rapid weight gain; severe depression, unusual thoughts or behavior; a seizure (convulsions); bloody or tarry stools, coughing up blood; fast or slow heart rate, weak pulse; pancreatitis--severe pain in your upper stomach spreading to your back, nausea and vomiting; low potassium level--leg cramps, constipation, irregular heartbeats, fluttering in your chest, increased thirst or urination, numbness or tingling; or increased blood pressure--severe headache, blurred vision, pounding in your neck or ears, anxiety, nosebleed. Dexamethasone can affect growth in children. Tell your doctor if your child is not growing at a normal rate while using this medicine. Common side effects may include: fluid retention (swelling in your hands or ankles); increased appetite; mood changes, trouble sleeping; skin rash, bruising or discoloration; acne, increased sweating, increased hair growth; headache, dizziness; nausea, vomiting, upset stomach; changes in your menstrual periods; or changes in the shape or location of body fat (especially in your arms, legs, face, neck, breasts, and waist). This is not a complete list of side effects and others may occur. Call your doctor for medical advice about side effects. You may report side effects to FDA at 1-404-TKD-9321. What other drugs will affect dexamethasone? Sometimes it is not safe to use certain medications at the same time. Some drugs can affect your blood levels of other drugs you take, which may increase side effects or make the medications less effective. Tell your doctor about all your current medicines. Many drugs can affect dexamethasone, especially: an antibiotic or antifungal medicine; control pills or hormone replacement therapy; insulin or diabetes medications you take by mouth; medicine to treat dementia or Parkinson's disease; a blood thinner--warfarin, Coumadin, Jantoven; or NSAIDs (nonsteroidal anti-inflammatory drugs)--aspirin, ibuprofen (Advil, Motrin), naproxen (Aleve), celecoxib, diclofenac, indomethacin, meloxicam, and others. This list is not complete and many other drugs may affect dexamethasone. This includes prescription and arlf-fts-abfarqf medicines, vitamins, and herbal products. Not all possible drug interactions are listed here. Where can I get more information? Your pharmacist can provide more information about dexamethasone. Remember, keep this and all other medicines out of the reach of children, never share your medicines with others, and use this medication only for the indication prescribed. Every effort has been made to ensure that the information provided by [employer]. ('[employer]') is accurate, up-to-date, and complete, but no guarantee is made to that effect. Drug information contained herein may be time sensitive. [employer] information has been compiled for use by healthcare practitioners and consumers in the [place] and therefore [employer] does not warrant that uses outside of the [place] are appropriate, unless specifically indicated otherwise. [employer] drug information does not endorse drugs, diagnose patients or recommend therapy. Getting-in drug information is an informational resource designed to assist licensed healthcare practitioners in caring for their patients and/or to serve consumers viewing this service as a supplement to, and not a substitute for, the expertise, skill, knowledge and judgment of healthcare practitioners. The absence of a warning for a given drug or drug combination in no way should be construed to indicate that the drug or drug combination is safe, effective or appropriate for any given patient. [employer] does not assume any responsibility for any aspect of healthcare administered with the aid of information [employer] provides. The information contained herein is not intended to cover all possible uses, directions, precautions, warnings, drug interactions, allergic reactions, or adverse effects. If you have questions about the drugs you are taking, check with your doctor, nurse or pharmacist. Copyright 9741-8086 [employer]. Version: 8.01. Revision Date: 06/12/2020. Education Materials Dental Abscess An abscess is a pocket of pus at the tip of a tooth root in your jaw bone. It is caused by an infection at the root of the tooth. It can cause pain and swelling of the gum, cheek, or jaw. Pain may spread from the tooth to your ear or the area of your jaw on the same side. If the abscess isn t treated, it appears as a bubble or swelling on the gum near the tooth. The pressure that builds in this swelling is the source of the pain. More serious infections cause your face to swell. An abscess can be caused by a crack in the tooth, a cavity, a gum infection, or a combination of these. Once the pulp of the tooth is exposed, bacteria can spread down the roots to the tip. If the bacteria are not stopped, they can damage the bone and soft tissue, and an abscess can form. Home care Follow these guidelines when caring for yourself at home: Don't have hot and cold foods and drinks. Your tooth may be sensitive to changes in temperature. Don t chew on the side of the infected tooth. If your tooth is chipped or cracked, or if there is a large open cavity, put oil of cloves directly on the tooth to relieve pain. You can buy oil of cloves at drugstores. Some pharmacies carry an tuoc-fdb-ngevhbm toothache kit. This contains a paste that you can put on the exposed tooth to make it less sensitive. Put a cold pack on your jaw over the sore area to help reduce pain. You may use epbh-vre-tcgfzfz medicine to ease pain, unless another medicine was prescribed. If you have chronic liver or kidney disease, talk with your healthcare provider before using acetaminophen or ibuprofen. Also talk with your provider if you ve had a stomach ulcer or GI bleeding. An antibiotic will be prescribed. Take it until finished, even if you are feeling better after a few days. Follow-up care Follow up with your dentist or an oral surgeon, or as advised. Once an infection occurs in a tooth, it will continue to be a problem until the infection is drained. This is done through surgery or a root canal. Or you may need to have your tooth pulled. Call 911 Call 911 if any of these occur: Unusual drowsiness Headache or stiff neck Weakness or fainting Difficulty swallowing, breathing, or opening your mouth Swollen eyelids When to seek medical advice Call your healthcare provider right away if any of these occur: Your face becomes more swollen or red Pain gets worse or spreads to your neck Fever of 100.4 F (38.0 C) or higher, or as directed by your healthcare provider Pus drains from the tooth 1503-7239 [employer]. [address] [place] [address]. All rights reserved. This information is not intended as a substitute for professional medical care. Always follow your healthcare professional's instructions. Additional Information VACCINATE! IT SAVES LIVES! Members of the community who have not yet received the COVID-19 vaccine and would like to receive it can visit one of [facility] vaccine clinics. There are many vaccine clinic locations within the [facility]. For locations and available times, please visit www.[email or web address].[place].gov/. It is important to note that some COVID mobile vaccine clinics are held outdoors and may be canceled in rainy or stormy conditions. To learn more about pediatric vaccinations (ages 5-11), we invite you to visit the [facility] webpage. [email or web address]/pages/[email or web address]-Uhiny-Qppyhcttxsx-Frequently-[email or web address] -Questions.html To learn more about the COVID-19 vaccine, we invite you to visit the CDC website for a list of frequently asked questions. https://www.cdc.gov/coronavirus/2019-n cov/vaccines/faq.html [facility] Patient Portal Access Instructions: Stay connected with your healthcare team and access your personal medical information anytime with the [facility] Patient Portal. If you would like a full copy of your medical records please contact the [facility] Medical Records Department Wednesday through Wednesday between 8a.m. and 4:30p.m. Please follow the directions below to access the portal: 1.Access the email account you provided upon registration to the [facility].2.Look for an invitation email from [facility].3.Open the email and access the invitation link: Accept Invitation to [facility].Fill in the required braswell to create your account. Sign into [email or web address] with your username and password that you created in the above steps to stay up to date. You can then view a summary of results, a summary of your visits, and the ability to download your summaries to your computer or send the information securely to a physician. Remember that your healthcare information is confidential, so carefully consider who you will allow to register on the [facility] Patient Portal for access to your information. You can also access the [facility] Patient Portal on the [employer]. Simply click on Health Records under Health Data and then click on the [employer] logo. HOW TO SAFELY DISPOSE OF PRESCRIPTION MEDICATIONS Please use one of the following methods to safely dispose of your unused medications. 1.Use a drug disposal kit: the drug disposal pouch allows you to safely discard your old and unused drugs. Ask your nurse to give you one when you are discharged.2.Visit a local take-back location: Many local pharmacies and police departments have programs that collect old and unwanted prescription drugs. Call your local pharmacy or go to http://bit.[employer] energy/1A9Sn7r to find one close to you.3.Make use of household items: Use cat litter or old coffee grounds to dispose medications if other options are not available. Mix your drugs with these household products, seal them in an airtight container and throw it into the garbage. Call [facility]: [phone] to be sure your drugs can be disposed of in this way. Some medicines may require a different approach.4.Never flush your medications down the toilet. IF YOU HAVE BEEN PRESCRIBED AN OPIOIDS FOR PAIN If you have been prescribed an opioid (such as hydrocodone, oxycodone or morphine), it is critical to understand the possible side effects and risks of opioid pain medications. Even when taken as directed, opioids can have several side effects including: Tolerance, meaning you might need to take more of a medication for the same pain relief. Nausea, vomiting and/or constipation. Sleepiness, dizziness, dry mouth, confusion, depression or itching. Physical dependence, meaning you have withdrawal symptoms when a medication is stopped ? this can develop within a few days. KNOW YOUR RESPONSIBILITIES It is important to know exactly how much and how often to take the opioid pain medications you are prescribed. Never take opioids in higher amounts or more often than prescribed. Do not combine opioids with alcohol or other drugs that cause drowsiness, such as benzodiazepines, also known as benzos, including diazepam and alprazolam, muscle relaxants or sleep aids. Never sell or share prescription opioids. This is illegal. Store opioids in a secure place and out of reach of others (including children, family, friends and visitors). The last page(s) of this document has been signed and retained as a CHART COPY Signatures Patient Education Materials Dental Abscess Medication Leaflets nabumetone, dexamethasone (oral) My discharge plan and instructions have been reviewed and explained to me and IANABEL FLORENCE M understand my current condition and have read and understand these discharge instructions. I have received a written copy of the plan/instructions. If I have questions, I am aware that I should contact my doctor. 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 Multiplanar reformatted images are provided for review. Automated exposure control, iterative reconstruction, and/or weight based adjustment of the mA/kV was utilized to reduce the radiation dose to as low as reasonably achievable. COMPARISON: None. HISTORY: ORDERING SYSTEM PROVIDED HISTORY: Reason for Exam: Right-sided jaw swelling Recent dental work, patient on antibiotics, no trauma, history of smoking FINDINGS: PHARYNX/LARYNX: No abnormal masslike enhancement. Right tonsillith. NASAL AND ORAL CAVITIES: Unremarkable nasal cavity. Previously removed left maxillary 1st molar and left mandibular 2nd premolar. Carious dentition associated with periapical lucency of a right mandibular molar. Only partly erupted right maxillary 3rd molar has a root extending into the right maxillary sinus. SALIVARY GLANDS/THYROID: Normal. LYMPH NODES: No abnormal pathologically enlarged, calcified, or cystic/necrotic lymphadenopathy. VASCULAR: Normal vascular contrast opacification. SOFT TISSUES: Right mandibular buccal soft tissue enhancement with overlying platysma and skin thickening and subcutaneous and submandibular space fat stranding. BRAIN/ORBITS: Unremarkable imaged intracranial and intraorbital structures. SINUSES: Moderate left mastoid opacification is nonspecific congestive or inflammatory change. Mild left maxillary sinus mucosal thickening. Remaining paranasal sinuses and mastoid air cells are clear. LUNG APICES/SUPERIOR MEDIASTINUM: No focal consolidation of imaged upper lungs. No superior mediastinal lymphadenopathy or mass. Normal imaged trachea. BONES: No aggressive appearing lytic or blastic bony lesion. Degenerative spine. IMPRESSION: Right mandibular buccal phlegmon or early abscess with overlying cellulitic changes secondary to periodontal disease of a remaining right mandibular molar. Recommend Dentistry follow-up. RECOMMENDATIONS: Unavailable Interpreted by: Celio Escamilla Preliminary Report By: Celio Escamilla Electronically signed By Celio Escamilla Dictated Date: 12/19/2022 11:49:13 AM Prelim Date: 12/19/2022 11:55:49 AM Sign Date: 12/19/2022 11:55:49 AM Ordering Provider: BAO [facility] Clinical Note 12-19-2022 Note Date & Type Note Facility 12-19-2022 Note ORIGINAL EXAMINATION: CT OF THE NECK SOFT TISSUE WITH CONTRAST 12/19/2022 TECHNIQUE: CT of the neck was performed with the administration of intravenous contrast. Multiplanar reformatted images are provided for review. Automated exposure control, iterative reconstruction, and/or weight based adjustment of the mA/kV was utilized to reduce the radiation dose to as low as reasonably achievable. COMPARISON: None. HISTORY: ORDERING SYSTEM PROVIDED HISTORY: Reason for Exam: Right-sided jaw swelling Recent dental work, patient on antibiotics, no trauma, history of smoking FINDINGS: PHARYNX/LARYNX: No abnormal masslike enhancement. Right tonsillith. NASAL AND ORAL CAVITIES: Unremarkable nasal cavity. Previously removed left maxillary 1st molar and left mandibular 2nd premolar. Carious dentition associated with periapical lucency of a right mandibular molar. Only partly erupted right maxillary 3rd molar has a root extending into the right maxillary sinus. SALIVARY GLANDS/THYROID: Normal. LYMPH NODES: No abnormal pathologically enlarged, calcified, or cystic/necrotic lymphadenopathy. VASCULAR: Normal vascular contrast opacification. SOFT TISSUES: Right mandibular buccal soft tissue enhancement with overlying platysma and skin thickening and subcutaneous and submandibular space fat stranding. BRAIN/ORBITS: Unremarkable imaged intracranial and intraorbital structures. SINUSES: Moderate left mastoid opacification is nonspecific congestive or inflammatory change. Mild left maxillary sinus mucosal thickening. Remaining paranasal sinuses and mastoid air cells are clear. LUNG APICES/SUPERIOR MEDIASTINUM: No focal consolidation of imaged upper lungs. No superior mediastinal lymphadenopathy or mass. Normal imaged trachea. BONES: No aggressive appearing lytic or blastic bony lesion. Degenerative spine. IMPRESSION: Right mandibular buccal phlegmon or early abscess with overlying cellulitic changes secondary to periodontal disease of a remaining right mandibular molar. Recommend Dentistry follow-up. RECOMMENDATIONS: Unavailable Interpreted by: Celio Escamilla Preliminary Report By: Celio Escamilla Electronically signed By Celio Escamilla Dictated Date: 12/19/2022 11:49:13 AM Prelim Date: 12/19/2022 11:55:49 AM Sign Date: 12/19/2022 11:55:49 AM Ordering Provider: BAO HORTON [facility] Evaluation + Plan note Note Date & Type Note Facility Evaluation + Plan note No data available for this section [facility] Hospital Discharge instructions Note Date & Type Note Facility Hospital Discharge instructions No data available for this section [facility] Progress note Note Date & Type Note Facility Progress note No data available for this section [facility] Summary Purpose Family History No Family History Records Found Advance Directives No Advanced Directives Records Found Additional Source Comments Care Team (unrecognized sect ion and content) Care Team Personnel Name: OWEN HOLDEN DO Member Role: Primary Care Physician Address: Address: [address] Care Team Related Persons Name: JUSTIN RICHMOND Patient Care team informatio n (unrecognized section and content) Care Team Personnel Name: OWEN HOLDEN DO Member Role: Primary Care Physician Address: Address: [address] Name: BAO HORTON MD Position: ED Physician Member Role: ED Physician Address: Address: [address] Care Team Related Persons Name: JUSTIN RICHMOND INFORMATION SOURCE (unrecogn ized section and content) FOR RECORDS PERTAINING TO PATIENTS WHO ARE OR HAVE BEEN ENROLLED IN A CHEMICAL DEPENDENCY/SUBSTANCEABUSE PROGRAM, SOME INFORMATION MAY BE OMITTED. This clinical summary was aggregated from multiple sources. Caution should be exercised in using it in the provision of clinical care. This summary normalizes information from multiple sources, and as a consequence, information in this document may materially change the coding, format and clinical context of patient data. In addition, data may be omitted in some cases. CLINICAL DECISIONS SHOULD BE BASED ON THE PRIMARY CLINICAL RECORDS. [facility]. provides no warranty or guarantee of the accuracy or completeness of information in this document.
== END | disposition home or self-care (01) ==
PROVIDERS: PCP Family Medicine; Referring Provider Nurse Practitioner Family; Visit Provider Nurse Practitioner Family
DX: Z12.2 Encounter for screening for malignant neoplasm of respiratory organs (principal); Z87.891 Personal history of nicotine dependence
CPT/HCPCS: 71271